=== PATIENT | female | born 1955 | race Caucasian/White ===

== ENCOUNTER → 2022-04-26 | Outpatient (CLI) | payer MEDICARE | END | disposition home or self-care (01) | LOC: RESCLI 10:34 | PROVIDERS: ATTEND Internal Medicine | DX: K21.9 Gastro-esophageal reflux disease without esophagitis (principal); I10 Essential (primary) hypertension; E78.5 Hyperlipidemia, unspecified; G47.33 Obstructive sleep apnea (adult) (pediatric); M10.9 Gout, unspecified; Z86.718 Personal history of other venous thrombosis and embolism; Z90.49 Acquired absence of other specified parts of digestive tract; Z98.890 Other specified postprocedural states; Z82.49 Family history of ischemic heart disease and other diseases of the circulatory system; Z88.0 Allergy status to penicillin; Z88.8 Allergy status to other drugs, medicaments and biological substances; Z88.2 Allergy status to sulfonamides; Z79.01 Long term (current) use of anticoagulants; Z79.899 Other long term (current) drug therapy ==

== ENCOUNTER → 2023-04-19 | Outpatient (CLI) | payer MEDICARE | END | disposition home or self-care (01) | LOC: RESCLI 09:32 | PROVIDERS: ATTEND Internal Medicine | DX: K21.9 Gastro-esophageal reflux disease without esophagitis (principal); I10 Essential (primary) hypertension; E78.5 Hyperlipidemia, unspecified; G47.33 Obstructive sleep apnea (adult) (pediatric); M10.9 Gout, unspecified; Z86.718 Personal history of other venous thrombosis and embolism; Z88.0 Allergy status to penicillin; Z88.2 Allergy status to sulfonamides; Z91.040 Latex allergy status; Z88.8 Allergy status to other drugs, medicaments and biological substances; Z82.49 Family history of ischemic heart disease and other diseases of the circulatory system; Z98.890 Other specified postprocedural states; Z90.710 Acquired absence of both cervix and uterus; Z79.01 Long term (current) use of anticoagulants; Z79.899 Other long term (current) drug therapy ==